=== PATIENT | female | born 1980 | race African-American/Black ===

== ENCOUNTER 2023-11-17 18:19 | Emergency (ER) | payer MEDICAID ==
[~2023-11-17] VITALS: Ht 167.6 cm; Wt 45.0 kg
[2023-11-17 18:21] VITALS: TEMP 98.4; O2SAT 98
[2023-11-17] MEDS ORDERED: CLONIDINE 0.1MG TABLET PO ONE (18:45)
[2023-11-17] MEDS: ONDANSETRON HCL 4MG/2ML INJ IV ONE (18:52)
[2023-11-17] MEDS: SUMATRIPTAN SUCCINATE 6MG/0.5ML VIAL SUBCUT ONE (18:52)
[2023-11-17] MEDS: KETOROLAC 30MG/ML VIAL IV ONE (18:53)
[2023-11-17] MEDS: ACETAMINOPHEN 325MG TABLET PO ONE (21:42)
[2023-11-17] MEDS ORDERED: NAPR375T5 MT (21:50)
[2023-11-17] MEDS ORDERED: ONDA-239 PO (21:50)
[2023-11-17 22:23] VITALS: BP 148/82; PULSE 65; RESP 18; O2SAT 98
== END 2023-11-17 22:25 | disposition home or self-care (01) ==
LOC: ER 18:19
DX: R51.9 Headache, unspecified (principal); Z88.0 Allergy status to penicillin; R50.9 Fever, unspecified; Z20.822 Contact with and (suspected) exposure to COVID-19
CPT/HCPCS: 99284; 96374; 71045; 96375; 87426; 70220; 96372; J1885; J2405; J3030